=== PATIENT | male | born 1985 | race African-American/Black ===

== ENCOUNTER 2020-03-03 15:37 | Emergency (ER) | payer MEDICAID ==
[~2020-03-03] VITALS: Ht 170.2 cm; Wt 68.0 kg
--- NOTE | 2020-03-03 15:45 | NUR ---
ED Nurse Note: Pt ambulated to ED c/o diarrhea for "401 days". Pt appears to have auditory hallucinations; but is cooperative and follow commands. Pt does not show signs of harm to self or others. IV site established; patent and intact. Urine specimen and blood specimen obtained and sent to lab
[2020-03-03 16:10] VITALS: BP 132/85
--- NOTE | 2020-03-03 16:23 | Emergency Room Report ---
History of Present Illness General Chief Complaint: Abdominal Pain Source: Patient Present Illness HPI Patient is a 34 male brought in by self after increased nausea and vomiting. Reports having a recent fall approximate 1 week ago. Denies any fever. Reports having a multiple episodes of vomiting. Reports having some left leg pain. Patient denies any other locations of pain. Denies any recent illness. Denies any significant leg swelling. Patient had not been having any diarrhea. Patient had recent hospital visit but will not disclose what this was. He reports no hematemesis or bloody stools.He denies any localized pain. Reports this is happened before. Allergies: Coded Allergies: No Known Allergies (Unverified , 03/03/20) COVID-19 Screening Contact w/high risk pt: No Recent Travel to affected area: No Experienced COVID-19 symptoms?: No COVID-19 Testing performed RETAIL MERCHANDISING MANAGER: No Patient History Past Medical History: see triage record Reviewed Nursing Documentation: PMH: Agreed; PSxH: Agreed Nursing Documentation-PMH Past Medical History: No History, Except For Hx Diabetes: Yes Review of Systems All Other Systems: negative except mentioned in HPI Physical Exam Vital Signs Date Time Temp Pulse Resp B/P (MAP) Pulse Ox O2 Delivery O2 Flow Rate FiO2 03/03/20 15:42 98.8 102 22 132/85 (101) 97 Room Air Sp02 EP Interpretation: reviewed, normal General Appearance: normal inspection, well appearing, no apparent distress, alert, GCS 15 Head: other - Forehead scalp soft tissue swelling. ENT: normal ENT inspection, hearing grossly normal, normal voice Neck: normal inspection, full range of motion, supple, no bony tend Respiratory: normal inspection, lungs clear, normal breath sounds, no respiratory distress, no retraction, no wheezing Cardiovascular #1: regular rate, rhythm, no edema Gastrointestinal: normal inspection, normal bowel sounds, non tender, soft, no guarding, no hernia Genitourinary: no CVA tenderness Musculoskeletal: normal inspection, back normal, normal range of motion Neurologic: alert, motor strength/tone normal, inventory control coordinator III-XII nml as tested, oriented x3, responsive, speech normal, normal inspection Psychiatric: normal inspection, judgement/insight normal, mood/affect normal Skin: no rash Medical Decision Making Diagnostic Impression: Primary Impression: Nonspecific abdominal pain Additional Impression: Urinary tract infection ER Course Patient is a 34-year-old male who presents for pain and vomiting. Patient does not appear to be in any acute distress. Appears to be somewhat confused and so CT imaging was ordered. He appears to have some evidence of recent trauma to the head.CT imaging showed no evidence of acute intracranial pathology as well as some soft tissue swelling to the forehead. In light recent trauma I feel that this is likely to be traumatic in nature. Patient was observed in the emergency department. Patient continues to have a benign abdominal exam and no signs of peritonitis. He was noted to be able to ambulate without assistance. Patient had a gradual improvement in his status. Patient appears to be stable for close outpatient follow-up. He was advised to return if worse. The patient is advised to follow up with primary care doctor in 1-2 days. Patient is advised to return if any worsening condition or if any changes in status that are concerning. This report is dictated with [employer] transfer and line up worker software which may occasionally lead to discrepancies related to use of this software. Labs Test 03/03/20 16:05 White Blood Count 4.6 K/UL (4.8-10.8) Red Blood Count 4.34 M/UL (4.70-6.10) Hemoglobin 12.9 G/DL (14.2-18.0) Hematocrit 40.0 % (42.0-52.0) Mean Corpuscular Volume 92 FL (80-99) Mean Corpuscular Hemoglobin 29.7 PG (27.0-31.0) Mean Corpuscular Hemoglobin Concent 32.2 G/DL (32.0-36.0) Red Cell Distribution Width 15.1 % (11.6-14.8) Platelet Count 333 K/UL (150-450) Mean Platelet Volume 5.7 FL (6.5-10.1) Neutrophils (%) (Auto) 58.9 % (45.0-75.0) Lymphocytes (%) (Auto) 31.6 % (20.0-45.0) Monocytes (%) (Auto) 7.4 % (1.0-10.0) Eosinophils (%) (Auto) 0.9 % (0.0-3.0) Basophils (%) (Auto) 1.2 % (0.0-2.0) Urine Color Yellow Urine Appearance Clear Urine pH 6 (4.5-8.0) Urine Specific [place] 1.015 (1.005-1.035) Urine Protein 2+ (NEGATIVE) Urine Glucose (UA) Negative (NEGATIVE) Urine Ketones Negative (NEGATIVE) Urine Blood Negative (NEGATIVE) Urine Nitrite Negative (NEGATIVE) Urine Bilirubin Negative (NEGATIVE) Urine Urobilinogen Normal MG/DL (0.0-1.0) Urine Leukocyte Esterase 1+ (NEGATIVE) Urine RBC 0-2 /HPF (0 - 0) Urine WBC 10-15 /HPF (0 - 0) Urine Squamous Epithelial Cells Occasional /LPF Urine Bacteria Occasional /HPF (NONE) Sodium Level 137 MMOL/L (136-145) Potassium Level 3.2 MMOL/L (3.5-5.1) Chloride Level 102 MMOL/L (98-107) Carbon Dioxide Level 23 MMOL/L (21-32) Anion Gap 12 mmol/L (5-15) Blood Urea Nitrogen 14 mg/dL (7-18) Creatinine 1.1 MG/DL (0.55-1.30) Estimat Glomerular Filtration Rate > 60 mL/min (>60) Glucose Level 114 MG/DL (74-106) Calcium Level 8.4 MG/DL (8.5-10.1) Total Bilirubin 0.2 MG/DL (0.2-1.0) Aspartate Amino Transf (AST/SGOT) 36 U/L (15-37) Alanine Aminotransferase (ALT/SGPT) 37 U/L (12-78) Alkaline Phosphatase 148 U/L (46-116) Troponin I 0.000 ng/mL (0.000-0.056) Total Protein 7.8 G/DL (6.4-8.2) Albumin 3.4 G/DL (3.4-5.0) Globulin 4.4 g/dL Albumin/Globulin Ratio 0.8 (1.0-2.7) Lipase 76 U/L (73-393) Last Vital Signs Date Time Temp Pulse Resp B/P (MAP) Pulse Ox O2 Delivery O2 Flow Rate FiO2 03/03/20 16:10 102 22 Room Air 03/03/20 16:10 98.8 132/85 97 Status: improved Disposition: HOME, SELF-CARE Condition: Stable Scripts Ondansetron Odt* (ZOFRAN ODT*) 4 Mg Tab.rapdis 4 MG BC EVERY 6 HOURS PRN for Nausea & Vomiting, #10 TAB 0 Refills Prov: Kvng Phillips MD 03/03/20 Cephalexin* (KEFLEX*) 500 Mg Capsule 500 MG ORAL EVERY 6 HOURS, #28 CAP Prov: Kvng Phillips MD 03/03/20 Kvng Phillips MD Mar 03, 2020 16:23
[2020-03-03 16:43] LABS: APPEARANCE,URINE CLEAR; BILIRUBIN, URINE NEGATIVE (NEGATIVE); GLUCOSE, URINE (UA) NEGATIVE (NEGATIVE); KETONES,URINE NEGATIVE (NEGATIVE); LEUKOCYTE ESTERASE ,URINE 1+ (NEGATIVE); NITRITE,URINE NEGATIVE (NEGATIVE); PH,URINE 6 (4.5-8.0); PROTEIN,URINE 2+ (NEGATIVE); UROBILINOGEN,URINE NORMAL MG/DL (0.0-1.0)
[2020-03-03 16:45] LABS: COLOR,URINE YELLOW
--- NOTE | 2020-03-03 16:46 | NUR ---
ED Nurse Note: Pt taken to XRAY on wheel chair.
[2020-03-03 16:50] LABS: BASOPHILS % (AUTO) 1.2 % (0.0-2.0); EOSINOPHILS % (AUTO) 0.9 % (0.0-3.0); HEMOGLOBIN 12.9 G/DL (14.2-18.0); LYMPHOCYTES % (AUTO) 31.6 % (20.0-45.0); MEAN CORPUSCULAR VOLUME 92 FL (80-99); MONOCYTES % (AUTO) 7.4 % (1.0-10.0); NEUTROPHILS % (AUTO) 58.9 % (45.0-75.0); PLATELET COUNT 333 K/UL (150-450); RED BLOOD COUNT 4.34 M/UL (4.70-6.10); RED CELL DISTRIBUTION WIDTH 15.1 % (11.6-14.8); WHITE BLOOD COUNT 4.6 K/UL (4.8-10.8)
--- NOTE | 2020-03-03 16:52 | NUR ---
ED Nurse Note: Pt returned from XRAY
[2020-03-03 16:59] LABS: ANION GAP 12 mmol/L (5-15); BLOOD UREA NITROGEN 14 mg/dL (7-18); CALCIUM 8.4 MG/DL (8.5-10.1); CARBON DIOXIDE 23 MMOL/L (21-32); CHLORIDE 102 MMOL/L (98-107); CREATININE 1.1 MG/DL (0.55-1.30); POTASSIUM 3.2 MMOL/L (3.5-5.1); SODIUM 137 MMOL/L (136-145)
[2020-03-03 17:04] LABS: ALANINE AMINOTRANSFERASE 37 U/L (12-78); ALBUMIN 3.4 G/DL (3.4-5.0); ALBUMIN/GLOBULIN RATIO 0.8 (1.0-2.7); ALKALINE PHOSPHATASE 148 U/L (46-116); ASPARTATE AMINO TRANSFERASE 36 U/L (15-37); BILIRUBIN,TOTAL 0.2 MG/DL (0.2-1.0)
[2020-03-03] MEDS ORDERED: cefTRIAXone 1 GM in NS 55 ML IVPB ONE (17:15)
--- NOTE | 2020-03-03 17:24 | Diagnostic Imaging Report ---
Indication: Altered mental status Technique: Continuous helical CT scanning of the head was performed without intravenous contrast material. Axial and coronal 5 mm sections were generated. Radiation dose was minimized using automated exposure control Dose: Total Dose Length Product - DLP 965.[address] Dose Index - CTDIvol(s) 53.4 mGy. Comparison: None FINDINGS: There is no acute intracranial hemorrhage, mass effect or cortical edema. The ventricles, cisterns and sulci are normal for age. Visualized mastoid air cells and paranasal sinuses are unremarkable. No acute skull fracture. There is a 15 x 7 mm ovoid structure in the midline frontal scalp which may represent an evolving hematoma versus epidermal inclusion cyst/sebaceous cyst. IMPRESSION: No evidence of acute intracranial hemorrhage, mass effect or cortical edema. 15 x 7 mm ovoid structure in the midline frontal scalp which may represent an evolving hematoma versus epidermal inclusion cyst/sebaceous cyst. Additional etiologies not excluded. Correlation with physical exam findings and follow-up recommended. The CT scanner at [facility] is accredited by the [employer] and the scans are performed using protocols designed to limit radiation exposure to as low as reasonably achievable to attain images of sufficient resolution adequate for diagnostic evaluation.
--- NOTE | 2020-03-03 17:26 | Diagnostic Imaging Report ---
Indication: Pelvic pain Technique: Frontal view of the pelvis Comparison: None Findings: Bone mineralization within normal limits. No acute fracture or dislocation is identified. Symphysis pubis and bilateral sacroiliac joints are maintained. Bowel gas pattern is nonobstructive. There is no radiopaque foreign body. Impression: No acute fracture or dislocation.
[2020-03-03 17:28] VITALS: BP 135/82
--- NOTE | 2020-03-03 18:43 | NUR ---
ED Nurse Note: Pt tried to leave, asked pt to stay in room. IV site removed. Pt asked for food and trying to leave. informed ermd.
[2020-03-03] MEDS ORDERED: CEPHALEXIN500 MG ORAL (18:45)
[2020-03-03] MEDS ORDERED: ONDANSETRON ODT4 MG BC (18:45)
[2020-03-03 18:48] VITALS: BP 142/87
--- NOTE | 2020-03-03 18:49 | NUR ---
ER DISCHARGE NOTE: Patient is cleared to be discharged per ERMD, pt is aox4, on room air, with stable vital signs. pt was given dc and prescription instructions, pt was able to verbalize understanding, pt id band and iv site removed without complications. pt is able to ambulate with steady gait. pt took all belongings. pt given sandwhich per request.
== END 2020-03-03 18:49 | disposition home or self-care (01) ==
LOC: EMR 16:00
DX: N39.0 Urinary tract infection, site not specified (principal); R10.9 Unspecified abdominal pain; E11.9 Type 2 diabetes mellitus without complications
CPT/HCPCS: 36415; 70450; 72170; 80053; 81003; 83690; 84484; 85025; 87086; 96365; 96375; J0696; J2405; J7040; Z7502; 99284